=== PATIENT | male | born 2000 | race Caucasian/White ===

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

== ENCOUNTER 2023-03-18 16:19 | Emergency (ER) | payer BC ==
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
[2023-03-18 17:15] VITALS: BP 146/86; PULSE 78; O2SAT 97
== END 2023-03-18 17:37 | disposition home or self-care (01) ==
LOC: ED 16:19
DX: S62.327A Displaced fracture of shaft of fifth metacarpal bone, left hand, initial encounter for closed fracture (principal); W22.01XA Walked into wall, initial encounter
CPT/HCPCS: 73110; 73130; 99283; A4570

== ENCOUNTER 2024-05-29 08:30 | Emergency (ER) | payer BC, OTHER ==
[2024-05-29 08:41] VITALS: TEMP 97.2
[2024-05-29] MEDS ORDERED: XYLOCAINE 1% HCL 20 ML MDV ONE (08:44)
--- NOTE | 2024-05-29 08:44 | ERPHSYRPT ---
- History of Present Illness Time Seen by Provider: 05/29/24 08:32 Source: patient Exam Limitations: no limitations Patient Subjective Stated Complaint: pt here for metal to right index finger from a machine at work Triage Nursing Assessment: pt alert, walked in, resp easy, skin w/d/p. has metal to right index finger no bleeding noted Physician History: Accidentally got a piece of metal stuck inside the distal end of the right index finger on the palmar aspect. No other symptoms or injuries. Occurred: just prior to arrival Method of Injury: other Quality: aching Severity of Pain-Max: moderate Severity of Pain-Current: moderate Extremities Pain Location: 2nd finger: right Modifying Factors: Improves With: nothing Associated Symptoms: none Allergies/Adverse Reactions: No Known Drug Allergies Allergy (Verified 05/29/24 08:37) Home Medications: No Reportable Medications [No Reported Medications] 05/29/24 [History] Hx Tetanus, Diphtheria Vaccination/Date Given: Yes Hx Influenza Vaccination/Date Given: No Hx Pneumococcal Vaccination/Date Given: No Immunizations Up to Date: Yes Travel Risk - International Travel Have you traveled outside of the country in past 3 weeks: No - Emerging Infectious Disease Are you exhibiting symptoms associated with any current EIDs: No - Review of Systems Constitutional: No Fever, No Chills Eyes: No Symptoms Ears, Nose, & Throat: No Symptoms Respiratory: No Cough, No Dyspnea Cardiac: No Chest Pain, No Edema, No Syncope Abdominal/Gastrointestinal: No Abdominal Pain, No Nausea, No Vomiting, No Diarrhea Genitourinary Symptoms: No Dysuria Musculoskeletal: Other (a piece of metal stuck inside the distal end of the right index finger on the palmar aspect), No Back Pain, No Neck Pain Skin: No Rash Neurological: No Dizziness, No Focal Weakness, No Sensory Changes Psychological: No Symptoms Endocrine: No Symptoms All Other Systems: Reviewed and Negative - Past Medical History Pertinent Past Medical History: Yes Respiratory History: Asthma Psycho-Social History: Attention Deficit Disorder Other Medical History: ADHD - Past Surgical History Past Surgical History: Yes Musculoskeletal: Orthopedic Surgery Other Surgical History: hand - Social History Smoking Status: Never smoker Exposure to second hand smoke: No Drug Use: none Patient Lives Alone: No - Social Determinants of Health Will the patient participate in the screening: Declined to provide - Nursing Vital Signs Nursing Vital Signs: Initial Vital Signs Temperature 97.2 F 05/29/24 08:41 Pulse Rate 69 05/29/24 08:41 Respiratory Rate 16 05/29/24 08:41 Blood Pressure 132/78 05/29/24 08:41 O2 Sat by Pulse Oximetry 100 05/29/24 08:41 Pain Scale Pain Intensity 2 - Physical Exam General Appearance: alert Eyes, Ears, Nose, Throat Exam: moist mucous membranes Neck Exam: non-tender, supple Cardiovascular/Respiratory Exam: chest non-tender, normal breath sounds, regular rate/rhythm, no respiratory distress Abdominal Exam: non-tender, No guarding Back Exam: normal inspection, No vertebral tenderness Hand Exam: normal ROM (a piece of metal stuck inside the distal end of the right index finger on the palmar aspect) Neuro/Tendon Exam: normal sensation, normal motor functions Mental Status Exam: alert, oriented x 3, cooperative Skin Exam: normal color, warm, dry - Course Nursing assessment & vital signs reviewed: Yes Ordered Tests: Medication Summary Discontinued Medications Generic Name Dose Route Start Last Admin Trade Name Freq PRN Reason Stop Dose Admin Lidocaine HCl 5 ml 05/29/24 08:39 05/29/24 08:46 Lidocaine Hcl 1% 20 Ml Mdv 20 Ml Ml IJ 05/29/24 08:40 5 ml STAT ONE Administration Lidocaine HCl Confirm 05/29/24 08:44 Lidocaine Hcl 1% 20 Ml Mdv 20 Ml Ml Administered 05/29/24 08:45 Dose 5 ml .ROUTE .STK-MED ONE - Progress Progress: improved, re-examined Progress Note: 05/29/24 09:02 Procedure note. Under local anesthesia with lidocaine 1% 5 mL and under aseptic precautions, metal foreign body removed with a hemostat from the palmar aspect of the distal end of the right index finger. No complications. Patient tolerated the proce dure well. Dressing applied by the nurse. Counseled pt/family regarding: diagnosis, need for follow-up Medical Desision Making - Risk of complications Minimal Risk: Minimal risk of morbidity - Departure Departure Disposition: Home Clinical Impression: Foreign body finger Condition: Stable Critical Care Time: No Referrals: RAJAN CHAIREZ NP [Primary Care Provider] - Follow up/PCP as directed Instructions: Wound Care (DC) Additional Instructions: See PCP for follow-up. Return to the ER for any emergency or new symptoms or worsening symptoms.
[2024-05-29] MEDS: XYLOCAINE 1% HCL 20 ML MDV IJ ONE (08:46)
[2024-05-29 09:18] VITALS: BP 103/69; PULSE 54; RESP 18; O2SAT 98
== END 2024-05-29 09:25 | disposition home or self-care (01) ==
LOC: ED 08:30
DX: S61.240A Puncture wound with foreign body of right index finger without damage to nail, initial encounter (principal)
CPT/HCPCS: 99283